=== PATIENT | male | born 1995 | race Caucasian/White ===

== ENCOUNTER 2020-03-02 16:25 | Emergency (ER) | payer MEDICAID ==
[~2020-03-02] VITALS: Ht 180.3 cm; Wt 45.0 kg
[2020-03-02 16:28] VITALS: BP 111/69
[2020-03-02] MEDS ORDERED: mupirocin 2% ointment 22GM TP STA (16:52)
[2020-03-02] MEDS ORDERED: DOXYCYCLINE 100MG CAPSULE PO STA (16:52)
== END 2020-03-02 17:45 | disposition home or self-care (01) ==
LOC: ER 16:26
DX: S01.20XA Unspecified open wound of nose, initial encounter (principal); X58.XXXA Exposure to other specified factors, initial encounter; Y93.89 Activity, other specified; Y92.89 Other specified places as the place of occurrence of the external cause; Y99.8 Other external cause status
CPT/HCPCS: 99283